=== PATIENT | female | born 1945 | race Caucasian/White ===

== ENCOUNTER 2017-01-10 10:29 | Emergency (ER) | payer MEDICARE, OTHER ==
[~2017-01-10] VITALS: Ht 170.2 cm; Wt 80.0 kg
[~2017-01-10 10:29] MED LIST: AMLO5TAB22 PO; APIX2.5T PO; CALTTAB PO; NORC7.5T PO; PROBCAP4 PO; Z.0.COMMODE-3:1; Z.0.WALKERFRONT
[2017-01-10 10:31] VITALS: BP 146/67; PULSE 69; RESP 18; TEMP 98.9; O2SAT 99
[2017-01-10] MEDS ORDERED: AMLO5TAB2 PO (10:46)
[2017-01-10] MEDS ORDERED: SULF1TAB23 PO (10:46)
[2017-01-10] MEDS ORDERED: HYDR2TAB PO (10:46)
[2017-01-10] MEDS ORDERED: ENOX40P SQ (10:46)
[2017-01-10] MEDS ORDERED: ASPI-516 CHEW (10:46)
[2017-01-10] MEDS ORDERED: CLINDAMYCIN INJ 600 MG in SODIUM CHLORIDE 0.9% INJ 100 ML IV ONE (11:15)
--- NOTE | 2017-01-10 11:31 | PD ---
HPI . Leg infection Chief Complaint: Skin Problem Time Seen by Provider: 11:01 Travel History International Travel<30 days: No Contact w/Intl Traveler<30days: Yes Name of Country Traveled to: [place] Traveled to known affect area: No History of Present Illness HPI This patient presents stating that she was sent here by orthopedics for evaluation and treatment of a leg infection. She was vacationing in [place] when she broke her leg. She had a anil placed in her left tibia. She was then placed in a walking boot. She has been wearing the boot since that time. She reports no increased pain, fevers, nausea or any other systemic symptoms. She went to see Dr. Blanchard today for routine follow-up of the fracture and ORIF which was done in [place]. When they removed the boot, they noticed that her leg was red, hot and swollen and suggested that she presented here for evaluation and IV antibiotics. [id number]: Left lower leg QUALITY: Red, hot and swollen SEVERITY: Mild DURATION: Unknown. Maybe 2 days TIMING: Unknown CONTEXT: Status post ORIF of a tib-fib fracture 2 weeks ago. MODIFYING FACTORS: ASSOCIATED SYMPTOMS: No associated symptoms. PFSH Past Medical History Cancer: No Cardiovascular Problems: No Diabetes: No Endocrine: No Gastrointestinal Disorders: Yes (CONSTIPATION W/ ANALGESIA) Genitourinary: No Hepatitis: No Hiatal Hernia: No Hypertension: Yes Immune Disorder: No Musculoskeletal: Yes (ARTHRITIS) Neurologic: No Psychiatric: No Reproductive: No Respiratory: No Thyroid Disease: No Past Surgical History Abdominal Surgery: Yes (APPENDECTOMY) AICD: No Eye Surgery: Yes (LEFT CATARACT EXTRACT.) Gynecologic Surgery: Yes (TAHBSO) Joint Replacement: No Pacemaker: No Other Surgery: Yes Social History Alcohol Use: No Tobacco Use: No Substance Use: No Allergies-Medications (Allergen,Severity, Reaction): Coded Allergies: No Known Allergies (Unverified , 09/29/15) Reported Meds & Prescriptions Reported Meds & Active Scripts Active Reported Sulfamethoxazole-Trimethoprim 800-160 Mg Tab 1 Tab PO BID Hydromorphone (Hydromorphone HCl) 2 Mg Tab 1 Mg PO Q4H PRN Amlodipine (Amlodipine Besylate) 5 Mg Tab 5 Mg PO DAILY Lovenox Inj (Enoxaparin Sodium) 40 Mg/0.4 Ml Syr 40 Mg SQ DAILY Aspirin 81 Mg Chew 81 Mg CHEW DAILY Review of Systems Except as stated in HPI: all other systems reviewed are Neg General / Constitutional: No: Fever, Chills Gastrointestinal: No: Nausea, Vomiting Musculoskeletal: No: Pain Skin: Positive Change in Pigmentation Physical Exam Narrative GENERAL: Awake and alert and in no distress. SKIN: She has Steri-Strips on her left knee and sutures on her left medial lower leg. There is no laxmi discharge. The wound on the lower leg is "angry appearing." The lower leg is red, hot and swollen. It is not tender. HEAD: Normocephalic/atraumatic. EYES: Pupils are equal. Extraocular movements are intact. NECK: Supple. RESPIRATORY: Nonlabored respirations. MUSCULOSKELETAL: Recent surgery to the left lower extremity. The leg looks well aligned. Sensation, movement, pulses and capillary refill are normal distally NEUROLOGICAL: Nonfocal. PSYCHIATRIC: Appropriate mood and affect. Data Data Last Documented VS Vital Signs Date Time Temp Pulse Resp B/P (MAP) Pulse Ox O2 Delivery O2 Flow Rate FiO2 01/10/17 10:42 17 01/10/17 10:31 98.9 69 146/67 (93) 99 Room Air Orders Orders Complete Blood Count With Diff (01/10/17 11:13) Lactic Acid Sepsis Protocol (01/10/17 11:13) Blood Culture (01/10/17 11:13) Iv Access Insert/Monitor (01/10/17 11:13) Basic Metabolic Panel (Bmp) (01/10/17 11:13) Clindamycin Inj (Cleocin Inj) (01/10/17 11:15) Westergren Sedimentation Rate (01/10/17 11:13) Tibia/Fibula (Ap/Lat) (01/10/17 11:32) Labs Laboratory Tests Test 01/10/17 11:15 White Blood Count 9.3 TH/MM3 Red Blood Count 3.60 MIL/MM3 Hemoglobin 10.6 GM/DL Hematocrit 32.1 % Mean Corpuscular Volume 89.2 FL Mean Corpuscular Hemoglobin 29.3 PG Mean Corpuscular Hemoglobin Concent 32.9 % Red Cell Distribution Width 14.9 % Platelet Count 466 TH/MM3 Mean Platelet Volume 8.0 FL Neutrophils (%) (Auto) 72.2 % Lymphocytes (%) (Auto) 19.2 % Monocytes (%) (Auto) 6.9 % Eosinophils (%) (Auto) 1.0 % Basophils (%) (Auto) 0.7 % Neutrophils # (Auto) 6.7 TH/MM3 Lymphocytes # (Auto) 1.8 TH/MM3 Monocytes # (Auto) 0.6 TH/MM3 Eosinophils # (Auto) 0.1 TH/MM3 Basophils # (Auto) 0.1 TH/MM3 CBC Comment DIFF FINAL Differential Comment Erythrocyte Sedimentation Rate 63 mm/hr Blood Urea Nitrogen 13 MG/DL Creatinine 0.78 MG/DL Random Glucose 89 MG/DL Calcium Level 8.8 MG/DL Sodium Level 138 MEQ/L Potassium Level 4.4 MEQ/L Chloride Level 105 MEQ/L Carbon Dioxide Level 24.4 MEQ/L Anion Gap 9 MEQ/L Estimat Glomerular Filtration Rate 73 ML/MIN Lactic Acid Level 1.2 mmol/L MDM Medical Decision Making Medical Screen Exam Complete: Yes Emergency Medical Condition: Yes Medical Record Reviewed: Yes (medical history is significant for hypertension. She has had a previous right total hip replacement. She has also had previous cataract surgery.) Differential Diagnosis My differential diagnosis includes but is not limited to localized wound infection, cellulitis, abscess Narrative Course This patient presents with a red, hot and swollen left lower extremity following ORIF of her tib-fib done 2 weeks ago. CBC, a lactic acid and blood cultures have been ordered. She will be treated with clindamycin. Disposition will depend upon her workup. MRI of her leg cannot be done to look for osteomyelitis because of the anil in her leg. I have ordered plain films. CBC & BMP Diagram 01/10/17 11:15 Calcium Level 8.8 ESR 63 LA 1.2 Last Impressions Tibia/Fibula X-Ray 01/10/17 1132 Signed Impressions: Service Date/Time: Sunday, January 10, 2017 11:58 - CONCLUSION: Slightly displaced/angulated acute fractures of the distal left tibia and fibula. Also a nondisplaced fracture of the proximal fibula. Patient has a tibial anil that is intact. Delvis Chavez MD This patient has cellulitis but no evidence of sepsis. Her hardware looks okay at this point. She will be treated outpatient for wound infection/cellulitis. I will remove her sutures prior to discharge. Diagnosis Primary Impression: Cellulitis Qualified Codes: L03.116 - Cellulitis of left lower limb Patient Instructions: Cellulitis (DC), General Instructions Med/Other Pt SpecificInfo: Prescription(s) given Scripts Clindamycin (Clindamycin) 300 Mg Cap 600 MG PO Q8H for Infection for 10 Days, #60 CAP 0 Refills Prov: Olivia Auguste MD 01/10/17 Disposition: 01 DISCHARGE HOME Condition: Stable Olivia Auguste MD Jan 10, 2017 11:31
[2017-01-10 11:51] LABS: AUTOMATED NEUTROPHIL # 6.7 TH/MM3 (1.8-7.7); BASOPHIL # 0.1 TH/MM3 (0-0.2); BASOPHIL % 0.7 % (0.0-2.0); EOSINOPHIL # 0.1 TH/MM3 (0-0.4); HEMATOCRIT 32.1 % (35.0-46.0); HEMO FLAGS DIFF FINAL; LYMPH % 19.2 % (9.0-44.0); LYMPHOCYTE # 1.8 TH/MM3 (1.0-4.8); MEAN CELL VOLUME 89.2 FL (80.0-100.0); MEAN CORPUSCULAR HEMOGLOBIN 29.3 PG (27.0-34.0); MEAN CORPUSCULAR HGB CONC 32.9 % (32.0-36.0); MONO % 6.9 % (0.0-8.0); NEUT % 72.2 % (16.0-70.0); PLATELET COUNT 466 TH/MM3 (150-450); RED CELL DISTRIBUTION WIDTH 14.9 % (11.6-17.2); WHITE BLOOD COUNT 9.3 TH/MM3 (4.0-11.0)
[2017-01-10 12:02] LABS: BICARBONATE 24.4 MEQ/L (21.0-32.0); POTASSIUM 4.4 MEQ/L (3.5-5.1)
--- NOTE | 2017-01-10 12:18 | RADRPT ---
EXAM DATE/TIME: 01/10/2017 11:58 [facility] COMPARISON: No previous studies available for comparison. INDICATIONS : Post op lower leg infection. MEDICAL HISTORY : None. SURGICAL HISTORY : ORIF left lower leg. ENCOUNTER: Initial ACUITY: 2 weeks PAIN SCORE: 6/10 LOCATION: Left lower leg. FINDINGS: Patient has had previous rodding of the tibia. There are comminuted, acute fractures in the distal sh aft regions of the left tibia and fibula with slight medial displacement and lateral angulation defor mity. There is also a nondisplaced fracture of the fibular neck. CONCLUSION: Slightly displaced/angulated acute fractures of the distal left tibia and fibula. Also a nondisplaced fracture of the proximal fibula. Patient has a tibial anil that is intact. Delvis Chavez MD on January 10, 2017 at 12:16 Board Certified Radiologist. This report was verified electronically.
[2017-01-10] MEDS ORDERED: CLIN300C5 PO (13:10)
== END 2017-01-10 15:00 | disposition home or self-care (01) ==
LOC: NEPC 10:29
DX: L03.116 Cellulitis of left lower limb (principal); I10 Essential (primary) hypertension; M19.90 Unspecified osteoarthritis, unspecified site
CPT/HCPCS: 73590; 80048; 83605; 85025; 85652; 87040; 96374

== ENCOUNTER 2018-02-04 05:18 | Inpatient (IN) ==
[2018-02-04] MEDS ORDERED: Metoprolol Tartrate 25 MG Tablet PO ONE (05:46)
[2018-02-04] MEDS ORDERED: Chlorhexidine Gluconate 2% 1 Pack (2 Cloths) TOPICAL ONE (05:46)
[2018-02-04] MEDS ORDERED: Dexamethasone Inj 20 MG/5 ML Vial IV.PUSH PRN (05:50)
[2018-02-04] MEDS ORDERED: Vancomycin Inj 1,000 MG in Sodium Chlor 0.9% Inj 250 ML IV.SIG SCH (06:00)
[2018-02-04] MEDS ORDERED: TRANEXAMIC ACID IV.SIG SCH (06:00)
[2018-02-04] MEDS ORDERED: Chlorhexidine 4% Topical 120 APPLIC/120 ML Bottle TOPICAL SCH (06:00)
[2018-02-04] MEDS ORDERED: SODIUM CHLOR 0.9% IV.SIG SCH (06:00)
[2018-02-04] MEDS ORDERED: Sodium Chlor 0.9% Inj 500 ML IV.SIG SCH (06:00)
[2018-02-04] MEDS ORDERED: fentaNYL Citrate Inj 100 MCG/2 ML Ampul ONE (06:22)
[2018-02-04] MEDS ORDERED: Ketamine Inj 50 MG/5 ML Syringe IV.PUSH ONE (06:22)
[2018-02-04] MEDS ORDERED: fentaNYL Citrate Inj 250 MCG/5 ML Ampul ONE (06:22)
[2018-02-04] MEDS ORDERED: Post-op Orders (for Pharmacy) OTHER STA (06:43)
[2018-02-04] MEDS ORDERED: HYDROmorphone PF Inj 1 MG/ML Ampul IV.PUSH PRN (06:43)
[2018-02-04] MEDS ORDERED: Bisacodyl 10 MG Supp RECTAL PRN (06:43)
[2018-02-04] MEDS ORDERED: Neostigmine Inj 5 MG/5 ML Syringe IV.PUSH ONE (06:48)
[2018-02-04] MEDS: ceFAZolin 2 GM Premix Inj 2 GM/50 ML PIGGYBACK IV.SIG SCH ×3 (06:48→19:43)
[2018-02-04] MEDS ORDERED: Glycopyrrolate Inj 1 MG/5 ML Syringe IV.PUSH ONE (06:48)
[2018-02-04] MEDS ORDERED: Lidocaine PF 1% Inj 5 ML Syringe OTHER ONE (06:48)
[2018-02-04] MEDS ORDERED: Phenylephrine/NS 1000 MCG/10ML Syringe IV.PUSH ONE (06:48)
[2018-02-04] MEDS ORDERED: Sodium Chlor 0.9% Inj 40 ML, Bupivacaine Liposo PF 1.3% Inj 20 ML P-ARTICULR SCH ×2 (07:00)
[2018-02-04] MEDS ORDERED: Dexamethasone Inj 20 MG/5 ML Vial IV.PUSH SCH (07:15)
[2018-02-04] MEDS ORDERED: Albumin Human 5% Inj 500 ML IV.SIG ONE (08:45)
[2018-02-04] MEDS ORDERED: Tranexamic Acid Inj 3,000 MG in Sodium Chlor 0.9% Inj 100 ML P-ARTICULR SCH (08:52)
[2018-02-04] MEDS ORDERED: *morphine SULFATE 4 MG/ML PERIprocedure ONLY ONE (10:00)
[2018-02-04] MEDS ORDERED: *Meperidine Inj 25 MG/ML Vial PERIprocedural Use ONLY ONE (10:13)
[2018-02-04 10:27] LABS: Hematocrit 30.7 % (35.0-46.0)
--- NOTE | 2018-02-04 11:27 | MP ---
cc: Pieter Blanchard MD DATE OF OPERATION: 02/04/2018 PREOPERATIVE DIAGNOSIS: Left hip osteoarthritis. POSTOPERATIVE DIAGNOSIS: Left hip osteoarthritis. PROCEDURE PERFORMED: Left total hip arthroplasty. SURGEON: Dr. Pieter Blanchard. DOUBLE ENDING MACHINE OPERATOR: SAMMIE Barrientos. ANESTHESIA: General. ESTIMATED BLOOD LOSS: 250 mL. COMPLICATIONS: None. IMPLANTS USED: DePuy CORAIL size 15 press-fit standard offset femoral stem, size 56 pinnacle Gription cup, size 36 mm highly cross-linked polyethylene neutral liner, size 36 mm ceramic head +12 neck. There was a 6.5 x 25 and a 6.5 x 30 mm screw placed within the cup for additional fixation. JUSTIFICATION: The patient is a 73-year-old female with history of severe end-stage osteoarthritis involving the left hip joint. She has severe disabling pain with standing, walking, ambulation, weightbearing and severe pain at rest. She has failed greater than 3 months of nonoperative conservative treatment to include medication therapy, injections, ambulatory. She has a home exercise program, activity modification and weight loss. X-ray of left hip reveals severe osteoarthritis with [id number] joint space narrowing, subchondral sclerosis, subchondral cyst, osteophyte formation with subluxation. The patient was counseled on risks, benefits, and alternatives to a total hip arthroplasty. The risks were discussed, which include, but are not limited to, bleeding, infection, damage to nerves and blood vessels, pain, stiffness, fracture dislocations failure of components, blood clots, pulmonary embolus, and even . The patient's pain is severe. She favored the benefit over the risks, she did wish to proceed with surgery. PROCEDURE IN DETAIL: Written consent was obtained. The patient was identified by name, taken to the operating room and placed supine on the operating table. General anesthesia was administered. The patient instilled with 2 grams of IV Ancef and 1 gram of IV vancomycin. The left and right feet were placed in the padded traction boots. The left hip and left lower extremity was then prepped and draped using isopropyl alcohol, Hibiclens solution and ChloraPrep solution. After a timeout was performed, a larger incision was made over the anterior aspect of the left hip. The fascia laine was incised. Dissection was carried over the tensor fascia laine beneath the rectus femoris. Full exposure of the anterior capsule, a capsulotomy incision was performed. An oscillating saw was used to perform a femoral neck cut. The osteolytic femoral head and neck was removed. A 10 blade scalpel was used to excise the labrum. Sequential reaming began at size 47 was carried through to a size 56. A [place] Gription cup was then placed in approximately 45 degrees of abduction and 10 degrees of anteversion. The purchase of the cup did require additional fixation of screws. Subsequently, 2 screws were placed in the posterior superior quadrant of the acetabulum for additional fixation and purchase. After the insertion of both screws. The cup was tested manually and noted to have excellent stability and fixation. A 36 mm neutral highly cross-linked polyethylene liner was placed within the cup. This was impacted in place for fixation and tested for stability. Attention was turned to the femur where the leg was externally rotated, extended and abducted. The capsule was released off the undersurface of the greater trochanter to allow for elevation and lateralization of the femur. A box cutting osteotome was used to gain entrance into the intramedullary canal of the femur. This was followed by a canal finder and sequential broaching up to size 15. A calcar planer to plane the calcar. A trial head and neck combination of rotary chronic was implanted with the current components. The leg could achieve external rotation of 7 degrees and extension all the way down to the ground without evidence of anterior instability or impingement. Soft tissue tension felt appropriate. Fluoroscopic imaging showed appropriate implantation of components. Surgical wound was thoroughly irrigated with sterile saline Pulsavac antibiotic impregnated solution. The fascial layer was closed with #1 Vicryl suture, subcutaneous layer with 2-0 Vicryl sutures. Skin was closed with Dermabond. Sterile dressing applied. No intraoperative complications noted. Teja Luong, Physician Wave Soldering Machine Operator, Certified was present for the procedure to include the patient position, the procedure itself and medical staff. The physician family readiness support assistant was indicated in this case due to the complexity of the procedure. He assisted with prepping the patient's leg and also retraction of muscle, tendon, bone, and neurovascular vessel structures. He assisted with preparation of bone and also implantation of the prosthetic replacement. MD FRANCISCO Silva/stevan/yves , 09:34 AM , 09:42 AM
--- NOTE | 2018-02-04 11:33 | XR ---
EXAM DATE: 02/04/2018 11:12 AM EST AGE/SEX: 73 years / Female INDICATIONS: Post op left hip. CLINICAL DATA: This is the patient's initial encounter. Patient reports that signs and symptoms have been present for 1 day and indicates a pain score of Nonresponsive. MEDICAL/SURGICAL HISTORY: None. . Right total hip. COMPARISON: TLI, XR HIP AP AND LAT, LEFT, 10/31/2017. . FINDINGS: AP view of the pelvis with 4 additional views of the left hip joint demonstrate left total hip arthro plasty hardware in place with 2 screws associated with the acetabular component. The femoral componen t is noncemented and contains no medial collar. There is soft tissue air surrounding the left hip neha nt. There is surgical drain is identified. Patient is also post right total hip arthroplasty. CONCLUSION: Expected changes following recent left total hip arthroplasty. There is air in the surrounding soft t issues. Electronically signed by: Delvis Cast MD 02/04/2018 11:32 AM EST
[2018-02-04] MEDS: Multivitamin/Minerals Therapeutic Tablet PO SCH ×2 (13:25→22:13)
[2018-02-04] MEDS: amLODIPine 10 MG Tablet PO SCH (13:25)
[2018-02-04] MEDS: Senna/Docusate Sodium 8.6/50 MG Tablet PO SCH ×2 (13:25→22:13)
[2018-02-04] MEDS ORDERED: Zolpidem Tartrate 5 MG Tablet PO PRN (21:00)
[2018-02-05] MEDS: ceFAZolin 2 GM Premix Inj 2 GM/50 ML PIGGYBACK IV.SIG SCH ×2 (04:12→04:13)
[2018-02-05 05:04] LABS: Hematocrit 23.4 % (35.0-46.0)
--- NOTE | 2018-02-05 07:52 | P.PNOP ---
Subjective Interval history: pain controlled. hip is sore. Physical Exam Vital signs: Vital Signs 02/04/18 09:44 02/04/18 10:00 02/04/18 10:15 Temperature 97.8 F Pulse Rate 110 H 102 H 94 H Respiratory Rate 18 18 18 Blood Pressure 128/60 117/56 L 119/56 L Pulse Oximetry 99 95 95 02/04/18 10:30 02/04/18 10:45 02/04/18 11:00 Temperature Pulse Rate 95 H 95 H 95 H Respiratory Rate 18 18 18 Blood Pressure 114/50 L 110/56 L 107/6 L Pulse Oximetry 95 95 95 02/04/18 12:30 02/04/18 13:00 02/04/18 13:50 Temperature 97.6 F Pulse Rate 94 H 83 91 H Respiratory Rate 15 14 16 Blood Pressure 103/57 L 108/53 L 129/57 L Pulse Oximetry 98 96 97 02/04/18 16:00 02/04/18 19:53 02/05/18 00:00 Temperature 97.3 F L 98.1 F 99.1 F Pulse Rate 92 H 85 89 Respiratory Rate 16 16 16 Blood Pressure 118/58 L 117/56 L 106/53 L Pulse Oximetry 99 98 97 02/05/18 03:43 Temperature 98.8 F Pulse Rate 92 H Respiratory Rate 17 Blood Pressure 115/61 Pulse Oximetry 97 Intake & Output 02/04/18 02/05/18 02/05/18 18:59 06:59 18:59 Intake Total 4383.1 / 4383.1 520 / 520 Output Total 1850 / 1850 Balance 2533.1 / 2533.1 520 / 520 Weight 87.3 kg 91.6 kg Intake: IV 1463.1 / 1463.1 100 / 100 LR 1000 mL Inj 1,000 ML @ 30 1000 / 1000 mls/hr IV.SIG .Q24H MARTHA Rx#: [id number] Cyklokapron Inj 1,310 MG In NS 113.1 / 113.1 Inj 100 ML @ 200 mls/hr IV.SIG ONCE MARTHA Rx#:[id number] Vancomycin Inj 1,000 MG In NS 250 / 250 Inj 250 ML @ 250 mls/hr IV.SIG AIRPLANE RIGGER MARTHA Rx#:[id number] Ancef 2 GM Premix Inj 2 gm In 100 / 100 100 / 100 50 ml @ 100 mls/hr IV.SIG Q6H MARTHA Rx#:[id number] Oral 220 / 220 420 / 420 Anesthesia Amount 2700 / 2700 Output: Urine 650 / 650 Estimated Blood Loss 1200 / 1200 Other: # Voids 4 1 Date of Last Bowel Movement 02/03/18 02/03/18 # Bowel Movements 0 Narrative: in bed, nad dressing c/d/i thigh soft neg homans nvi Results - Labs CBC & Chem 7: 02/05/18 04:39 Laboratory Results - last 24 hr 02/04/18 02/05/18 10:10 04:39 Hgb 10.0 L 8.0 L D Hct 30.7 L 23.4 L - Imaging Impressions Hip X-Ray 02/04/18 06:42 CONCLUSION: Expected changes following recent left total hip arthroplasty. There is air in the surrounding soft tissues. Assessment and Plan - Ortho Post Op Day # 1 - Assessment and Plan s/p L CARLOS anterior approach wbat ok to maintain dressing unless saturated asa 81 anemia - asymptomatic. monitor for now d/c planning home with [facility] and pt - Wed f/up dr. phillips 2 weeks
--- NOTE | 2018-02-05 07:53 | P.DCO ---
- Physical Therapy Physical Therapy: Gait training, Safety evaluation, Transfer training, bed to chair Hip: Total hip, Protocol: Left, Progress to weight bearing Left Lower Extremity Weight Bearing: Weight bearing as tolerated - Nursing RN: 3 days/week x 2 weeks Nursing: Dressing changes Dressing changes: Do not change dressing, Daily dressing change - Certification Need for Home Health services: I have seen patient Annelise Carbajal on 02/05/18. My clinical findings support the need for the requested home health care services because: Need for Home Health Services: Limited ability to care for self, High risk of falls Homebound Certification: I certify that my clinical findings support that this patient is homebound because: Homebound Certification: Post-op weakness, Unsteady gait/balance
[2018-02-05] MEDS: Multivitamin/Minerals Therapeutic Tablet PO SCH ×2 (09:02→21:00)
[2018-02-05] MEDS: amLODIPine 10 MG Tablet PO SCH (09:03)
[2018-02-05] MEDS: Senna/Docusate Sodium 8.6/50 MG Tablet PO SCH ×2 (09:03→21:00)
--- NOTE | 2018-02-05 14:28 | XR ---
EXAM DATE: 02/05/2018 1:55 PM EST AGE/SEX: 73 years / Female INDICATIONS: Left anterior hip replacement. CLINICAL DATA: This is the patient's initial encounter. Patient reports that signs and symptoms have been present for 1 day and indicates a pain score of Nonresponsive. MEDICAL/SURGICAL HISTORY: None. None. COMPARISON: TLI, XR HIP AP AND LAT, LEFT, 10/31/2017. . FINDINGS: 2 images from the OR have been submitted. There is a total right hip replacement in place. The acetab ular component is secured by 2 screws directed superiorly. The prosthetic components appear well plac ed. CONCLUSION: Successful total hip replacement. Electronically signed by: Delvis Leonard MD 02/05/2018 2:27 PM EST
[2018-02-06 05:06] LABS: Hematocrit 19.8 % (35.0-46.0); Hemoglobin 6.7 gm/dL (11.6-15.3)
[2018-02-06] MEDS: amLODIPine 10 MG Tablet PO SCH (09:19)
[2018-02-06] MEDS: Multivitamin/Minerals Therapeutic Tablet PO SCH ×2 (09:19→20:00)
[2018-02-06] MEDS: Senna/Docusate Sodium 8.6/50 MG Tablet PO SCH ×2 (09:20→20:00)
--- NOTE | 2018-02-06 10:30 | P.PNOP ---
Subjective Interval history: very painful. receiving blood. Physical Exam Vital signs: Vital Signs 02/05/18 12:00 02/05/18 16:00 02/05/18 19:15 Temperature 98.3 F 98 F 98.7 F Pulse Rate 85 92 H 91 H Respiratory Rate 18 20 18 Blood Pressure 120/59 L 134/73 111/56 L Pulse Oximetry 98 100 97 02/06/18 00:04 02/06/18 01:00 02/06/18 03:58 Temperature 100.0 F H 98.7 F Pulse Rate 98 H 94 H Respiratory Rate 17 18 17 Blood Pressure 117/58 L 121/58 L Pulse Oximetry 94 L 95 02/06/18 06:08 02/06/18 06:28 02/06/18 08:00 Temperature 99.3 F 98.5 F 101.5 F H Pulse Rate 92 H 88 88 Respiratory Rate 17 17 17 Blood Pressure 112/52 L 113/56 L 111/53 L Pulse Oximetry 94 L 100 02/06/18 10:05 Temperature 98.6 F Pulse Rate 95 H Respiratory Rate 18 Blood Pressure 117/58 L Pulse Oximetry 99 Intake & Output 02/05/18 02/06/18 02/06/18 18:59 06:59 18:59 Intake Total 480 / 480 400 / 400 Balance 480 / 480 400 / 400 Weight 93.4 kg Intake: Oral 480 / 480 Intake (Blood Product) Amt 0 / 0 400 / 400 Rbc As-3 Leukoreduced Unit 0 / 0 400 / 400 [id number] Other: # Voids 2 Date of Last Bowel Movement 02/03/18 02/03/18 02/03/18 # Bowel Movements 0 Narrative: in chair, nad, receiving blood dressing c/d/i neg homans nvi thigh soft pain with movement of hip Results - Labs CBC & Chem 7: 02/06/18 03:55 Laboratory Results - last 24 hr 02/06/18 02/06/18 02/06/18 03:55 05:30 05:40 Hgb 6.7 L* Hct 19.8 L* MTS Gel Crossmatch See Detail See Detail Bld Prod Order Comment Cancelled - Imaging Impressions Hip X-Ray 02/04/18 00:00 CONCLUSION: Successful total hip replacement. Assessment and Plan - Ortho Post Op Day # 2 - Assessment and Plan s/p L CARLOS anterior approach wbat ok to maintain dressing unless saturated asa 81 anemia - patient receiving 2 units PRBC today d/c planning home with [facility] and pt - hold today, possibly thurs xray L hip f/up dr. phillips 2 weeks
--- NOTE | 2018-02-06 15:38 | XR ---
EXAM DATE: 02/06/2018 3:36 PM EST AGE/SEX: 73 years / Female INDICATIONS: Patient complains of left hip pain status post op. CLINICAL DATA: This is the patient's subsequent encounter. Patient reports that signs and symptoms h ave been present for 3 days and indicates a pain score of 10/10. MEDICAL/SURGICAL HISTORY: None. . ORIF left hip. COMPARISON: C, HIP LEFT W AP PELVIS 2V, 02/04/2018. . FINDINGS: The patient is status post a total hip arthroplasty. Prosthesis is well-seated. Alignment is anatomic . A fracture is not appreciated. CONCLUSION: Anatomic alignment. Tray Michaud MD FACR Electronically signed by: Tray Michaud MD 02/06/2018 3:37 PM EST
[2018-02-07 00:12] VITALS: O2SAT 95
--- NOTE | 2018-02-07 07:49 | P.PNOP ---
Subjective Interval history: pain better today. Physical Exam Vital signs: Vital Signs 02/06/18 08:00 02/06/18 10:05 02/06/18 11:33 Temperature 101.5 F H 98.6 F 97.9 F Pulse Rate 88 95 H 92 H Respiratory Rate 17 18 17 Blood Pressure 111/53 L 117/58 L 110/56 L Pulse Oximetry 100 99 99 02/06/18 11:48 02/06/18 12:00 02/06/18 15:11 Temperature 98.3 F 97.9 F 98.6 F Pulse Rate 87 92 H 95 H Respiratory Rate 18 17 18 Blood Pressure 113/55 L 110/56 L 117/58 L Pulse Oximetry 96 99 99 02/06/18 16:00 02/06/18 19:04 02/06/18 23:11 Temperature 98.1 F 98.7 F 98.4 F Pulse Rate 87 90 77 Respiratory Rate 17 18 18 Blood Pressure 112/55 L 135/61 112/53 L Pulse Oximetry 93 L 97 95 02/07/18 05:21 Temperature Pulse Rate Respiratory Rate 18 Blood Pressure Pulse Oximetry Intake & Output 02/06/18 02/07/18 02/07/18 18:59 06:59 18:59 Intake Total 800 / 800 480 / 480 Balance 800 / 800 480 / 480 Weight 93.4 kg Intake: Oral 480 / 480 Intake (Blood Product) Amt 800 / 800 Rbc As-3 Leukoreduced Unit 400 / 400 [id number] Rbc As-3 Leukoreduced Unit 400 / 400 [id number] Other: # Voids 3 2 Date of Last Bowel Movement 02/03/18 02/03/18 # Bowel Movements 0 Narrative: in bed, nad dressing c/d/i thigh soft neg homans nvi Results - Labs CBC & Chem 7: 02/06/18 03:55 Laboratory Results - last 24 hr 02/06/18 05:40 MTS Gel Crossmatch See Detail - Imaging Impressions Hip X-Ray 02/06/18 00:00 CONCLUSION: Anatomic alignment. Tray Michaud MD FACR Assessment and Plan - Ortho Post Op Day # 3 - Assessment and Plan s/p L CARLOS anterior approach wbat ok to maintain dressing unless saturated asa 81 anemia - received 2 units PRBC yesterday. recheck h&h d/c planning to snf - cleared xray L hip - negative/no changes f/up dr. phillips 2 weeks
[2018-02-07] MEDS: Senna/Docusate Sodium 8.6/50 MG Tablet PO SCH (08:05)
[2018-02-07] MEDS: amLODIPine 10 MG Tablet PO SCH (08:05)
[2018-02-07] MEDS: Multivitamin/Minerals Therapeutic Tablet PO SCH (08:05)
[2018-02-07 08:46] VITALS: RESP 17; TEMP 97.9
[2018-02-07 12:14] LABS: Hematocrit 27.5 % (35.0-46.0); Hemoglobin 9.4 gm/dL (11.6-15.3)
[2018-02-07 12:35] VITALS: BP 100/53; PULSE 79
--- NOTE | 2018-02-08 07:26 | MD ---
cc: Pieter Blanchard MD DATE OF DISCHARGE: 02/07/2018 ADMITTING DIAGNOSIS: Severe degenerative osteoarthritis, left hip. DISCHARGE DIAGNOSIS: Severe degenerative osteoarthritis, left hip. HISTORY OF PRESENT ILLNESS: Mrs. Carbajal is a 73-year-old female who has been a longstanding [facility] of [facility]. She is being treated for severe and progressive left hip pain. The patient states the pain is severe and aching with weightbearing activities. Pain is inhibiting activities of daily living. She has no alleviating factors, although she has tried medications, assistive devices, physical therapy, home exercise program without relief of symptoms. She does have x-ray evidence of severe degenerative osteoarthritis of the left hip. She also has a history of a well-functioning right total hip arthroplasty. While in the office, the patient was counseled on her diagnosis and treatment options. Risk, benefits and indications were all discussed. The patient did elect to proceed with surgical intervention to include a left total hip arthroplasty. DATE OF SURGERY: 02/04/2018: Left total hip arthroplasty, anterior approach. PREOPERATIVE: After surgery, the patient was admitted to [facility] where she received appropriate medical management, pain control, DVT prophylaxis, as well as physical therapy. DISCHARGE: Once being discharged from the hospital, the patient is cleared to go to a [facility] facility. She is in stable condition. She may weight bear as tolerated. She has been instructed on wound care management. She has been provided prescriptions for pain control, DVT prophylaxis medication. She has also been provided a followup appointment in approximately 2 weeks from date of surgery. The patient cleared for discharge. Dictated by SAMMIE Cm Pieter Blanchard MD JWM/es , 08:06 AM , 08:12 AM
== END 2018-02-07 16:48 ==
LOC: HSDI 05:18 → N06 13:34
PROVIDERS: ADMIT Orthopaedic Surgery Sports Medicine; ATTEND Orthopaedic Surgery Sports Medicine